=== PATIENT | male | born 1950 | race Caucasian/White ===

== ENCOUNTER → 2020-05-13 | Outpatient (CLI) | payer OTHER ==
--- NOTE | 2020-05-13 12:35 | 2DMMODE ---
[place] [address] 2 D/M-MODE ECHOCARDIOGRAM Name: BRITTANY BOBO Room: [facility]#: [id number] Admission: 05/13/20 Attend Phys: Francis Espinosa MD Discharge: Date of : 50 Date of Service: 05/13/20 1234 Report #: [id number] THIS REPORT FOR: cc: Heladio Gr MD, Richard K. MD Liston, Michael J. MD [facility] ~ APPROVED REPORT Study performed: 05/13/2020 10:54:50 EXAM: Comprehensive 2D, Doppler, and color-flow Echocardiogram Patient Location: Out-Patient BSA: 2.39 HR: 78 bpm BP: 130/80 mmHg Other Information Study Quality: Good Indications Atrial Fibrillation 2D Dimensions IVSd: 11.98 (7-11mm) LVOT Diam: 20.02 (18-24mm) LVDd: 52.59 mm PWd: 11.42 (7-11mm) Ascending Ao: 34.95 (22-36mm) LVDs: 34.70 (25-40mm) Aortic Root: 32.11 mm Volumes Left Atrial Volume (Systole) LA ESV Index: 16.50 mL/m2 Aortic Valve AoV Peak Cecilio.: 0.92 m/s AO Peak Gr.: 3.36 mmHg LVOT Max P.88 mmHg AO Mean Gr.: 1.93 mmHg LVOT Mean P.42 mmHg LVOT Max V: 0.85 m/s AO V2 VTI: 16.51 cm LVOT Mean V: 0.55 m/s JEB (VTI): 3.48 cm2 LVOT V1 VTI: 18.27 cm Mitral Valve E/A Ratio: 0.92 [place] [address] 2 D/M-MODE ECHOCARDIOGRAM Name: BRITTANY BOBO Room: [facility]#: [id number] Admission: 05/13/20 Attend Phys: Francis Espinosa MD Discharge: Date of : 50 Date of Service: 05/13/20 1234 Report #: [id number] MV Decel. Time: 271.42 ms MV E Max Cecilio.: 0.57 m/s MV PHT: 78.71 ms MVA (PHT): 2.79 cm2 TDI E/Lateral E': 5.18 E/Medial E': 9.50 Medial E' Cecilio.: 0.06 m/s Lateral E' Cecilio.: 0.11 m/s Pulmonary Valve PV Peak Cecilio.: 0.99 m/s PV Peak Gr.: 3.94 mmHg Left Ventricle The left ventricle is normal size. There is normal LV segmental wall motion. There is normal left ventricular wall thickness. Left ventricular systolic function is normal. LVEF is 55-60%. Grade I - abnormal relaxation pattern. Right Ventricle The right ventricle is normal size. The right ventricular systolic function is normal. Atria The left atrium size is normal. The right atrium size is normal. Aortic Valve Mild aortic valve sclerosis. Trace aortic regurgitation. There is no aortic valvular stenosis. Mitral Valve The mitral valve is normal in structure. Trace mitral regurgitation. No evidence of mitral valve stenosis. Tricuspid Valve The tricuspid valve is normal in structure. There is no tricuspid valve regurgitation noted. Pulmonic Valve The pulmonary valve is normal in structure. There is no pulmonic valvular regurgitation. Great Vessels The aortic root is normal in size. IVC is normal in size and collapses >50% [place] [address] 2 D/M-MODE ECHOCARDIOGRAM Name: BRITTANY BOBO Room: [facility]#: [id number] Admission: 05/13/20 Attend Phys: Francis Espinosa MD Discharge: Date of : 50 Date of Service: 05/13/20 1234 Report #: [id number] Pericardium There is no pericardial effusion. <Conclusion> The left ventricle is normal size. There is normal left ventricular wall thickness. Left ventricular systolic function is normal. LVEF is 55-60%. Grade I - abnormal relaxation pattern. Mild aortic valve sclerosis. Trace aortic regurgitation. There is no aortic valvular stenosis. Trace mitral regurgitation. IVC is normal in size and collapses >50% with inspiration. <ELECTRONICALLY SIGNED> By: Raimundo Echeverria MD, FACC 05/13/20 1234 1234 1234 Raimundo Echeverria MD, FACC /INF
--- NOTE | 2020-05-13 12:52 | EKG ---
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: : 1950 Requested By: Francis Espinosa Order Number: [id number] Reading MD: Moris Ramirez Measurements Intervals [place] Rate: 70 P: 58 IA: 199 QRS: 66 QRSD: 100 T: 67 QT: 410 QTc: 443 Interpretive Statements Sinus rhythm Probable left atrial enlargement Borderline T wave abnormalities No previous ECG available for comparison Electronically Signed On 05-13-2020 12:51:59 PLY BANDER by Moris Ramirez [email or web address] <ELECTRONICALLY SIGNED> By: Moris Ramirez MD, [facility] 05/13/20 1251 1144 1144 Moris Ramirez MD, [facility] /EPI
== END ==
LOC: M.CRD 05-05 10:30
PROVIDERS: ATTEND Orthopaedic Surgery
DX: I35.0 Nonrheumatic aortic (valve) stenosis (principal); I49.9 Cardiac arrhythmia, unspecified; I48.91 Unspecified atrial fibrillation